=== PATIENT | female | born 1995 | race Caucasian/White ===

== ENCOUNTER 2018-01-14 15:25 | Emergency (ER) | payer OTHER ==
[~2018-01-14] VITALS: Ht 165.1 cm; Wt 49.9 kg
[2018-01-14 16:15] LABS: ABSOLUTE NEUTROPHILS 4.3 thou/uL (1.4-8.2); BASOPHILS 0.6 % (0.0-2.0); EOSINOPHILS 7.9 % (0.0-3.0); HEMATOCRIT 38.1 % (37.0-47.0); HEMOGLOBIN 13.2 gm/dL (12.0-15.0); LYMPHOCYTES 30.5 % (24.0-44.0); MCH 29.9 pg (26.0-34.0); MCHC 34.7 g/dL (28.0-37.0); MCV 86.1 fL (80.0-100.0); MONOCYTES 5.5 % (1.0-8.0); PLATELET COUNT 269 thou/uL (150-400); POLYS 55.5 % (36.0-66.0); RBC 4.43 mil/uL (4.20-5.00); RDW 14.2 % (10.5-14.5); WBC 7.7 thou/uL (4.0-11.0)
[2018-01-14 16:28] LABS: ANION GAP 7 mmol/L (7-16); BUN 15 mg/dL (7-18); CALCIUM 8.9 mg/dL (8.5-10.1); CHLORIDE 101 mmol/L (98-107); CO2 28 mmol/L (21-32); CREATININE 0.9 mg/dL (0.6-1.0); GLUCOSE 107 mg/dL (74-106); POTASSIUM 3.6 mmol/L (3.5-5.1); SODIUM 136 mmol/L (136-145)
[2018-01-14 16:33] LABS: ALBUMIN 4.3 g/dL (3.4-5.0); DIRECT BILIRUBIN < 0.1 mg/dL (<0.1-0.3); LIPASE 125 U/L (73-393); SGOT 21 U/L (15-37); SGPT 33 U/L (30-65); TOTAL BILIRUBIN 0.3 mg/dL (<0.1-1.0); TOTAL PROTEIN 8.4 g/dL (6.4-8.2)
[2018-01-14] MEDS ORDERED: ZOFRAN ODT4 MG PO (16:38)
[2018-01-14] MEDS ORDERED: PEPCID40 MG PO (16:38)
[2018-01-14] MEDS ORDERED: NORCO 5-325 TA1 EACH PO ×2 (17:19→17:20)
[2018-01-14 17:20] VITALS: BP 102/60
== END 2018-01-14 17:20 | disposition home or self-care (01) ==
LOC: ER 15:25
PROVIDERS: Emergency Medicine
DX: K29.70 Gastritis, unspecified, without bleeding (principal)